=== PATIENT | female | born 1980 | race Caucasian/White ===

== ENCOUNTER 2018-01-29 09:38 | Day surgery (SDC) | payer BC, OTHER ==
[~2018-01-29] VITALS: Ht 154.9 cm; Wt 89.0 kg
[~2018-01-29 09:38] MED LIST: ACNE MED; ACYC400; AMOX875 PO; ESCI10; EXCEDRIN TENSION H/A; HYDACE10B PO; HYDACE5 PO; HYDPAM25 PO; IBUP800; Imitrex50 MG; LEVFLO500; METR500; NAPR250; ONDA8; PRED20 PO; PROG100 PO; RXOXYACE PO; SERT50; SUMA6I; TRAM50
[2018-01-29] MEDS ORDERED: NAPR500 (10:14)
== END 2018-01-29 12:35 | disposition home or self-care (01) ==
LOC: ORSCSDS 09:38
PROVIDERS: Obstetrics & Gynecology
PROC: 0UBC7ZX Excision of Cervix, Via Natural or Artificial Opening, Diagnostic (ICD-10-PCS; principal; 2018-01-29 11:30)
DX: D06.0 Carcinoma in situ of endocervix (principal); E66.01 Morbid (severe) obesity due to excess calories; Z68.37 Body mass index [BMI] 37.0-37.9, adult; F17.210 Nicotine dependence, cigarettes, uncomplicated
CPT/HCPCS: 88307; J0171; J0690; J1100; J1885; J2250; J2405

== ENCOUNTER → 2018-05-10 | Outpatient (CLI) | payer BC ==
[~2018-05-10] MED LIST changes: +NAPR500
[2018-05-10 10:29] LABS: BASOPHILS ABSOLUTE AUTO 0.04 K/mm3 (0.00-0.23); BASOPHILS PERCENT AUTO 1 % (0-2); EOSINOPHILS ABSOLUTE AUTO 0.05 K/mm3 (0.00-0.68); EOSINOPHILS PERCENT AUTO 1 % (0-6); Hematocrit 40.4 % (33.0-51.0); Hemoglobin 13.5 g/dL (11.5-16.0); IMMATURE GRAN ABSOLUTE AUTO 0.02 K/mm3 (0.00-0.10); IMMATURE GRAN PERCENT AUTO 0 % (0-1); LYMPHOCYTES ABSOLUTE AUTO 1.25 K/mm3 (0.84-5.20); LYMPHOCYTES PERCENT AUTO 22 % (21-46); MONOCYTES PERCENT AUTO 5 % (4-13); Mean Corpuscular HGB 28.8 pg (26.0-34.0); Mean Corpuscular HGB Conc 33.4 g/dL (31.5-36.5); Mean Corpuscular Volume 86 fL (80-100); Mean Platelet Volume 10.2 fL (9.1-12.4); NEUTROPHILS ABSOLUTE AUTO 4.08 K/mm3 (1.96-9.15); NEUTROPHILS PERCENT AUTO 71 % (41-73); Platelet Count 295 K/mm3 (150-400); RDW Coefficient Variation 13.9 % (11.7-14.2); RDW Standard Deviation 43.2 fL (35.1-46.3); Red Blood Cell Count 4.68 M/mm3 (3.80-5.20); White Blood Cell Count 5.74 K/mm3 (4.00-11.30)
[2018-05-10 10:47] LABS: Alanine Aminotransfer (ALT/SGP 42 U/L (12-78); Albumin, Blood 3.8 g/dL (3.4-5.0); Alk Phos 59 U/L (40-126); Anion Gap 14 mmol/L (6-16); Aspartate Aminotrans (AST/SGOT 30 U/L (12-37); Bilirubin, Total 0.2 mg/dL (0.1-1.0); Blood Urea Nitrogen 11 mg/dL (8-24); Bun/Creatinine Ratio 13.1 (12.0-20.0); CO2, Blood 21 mmol/L (21-32); Calcium, Blood 9.3 mg/dL (8.5-10.1); Chloride, Blood 104 mmol/L (98-108); Creatinine, Blood 0.84 mg/dL (0.40-1.00); Globulin, Blood 3.9 g/dL (2.2-4.0); Glomerular Filtration Rate >60 (60-); Glucose, Blood 98 mg/dL (70-99); Sodium, Blood 139 mmol/L (136-145); Total Protein, Blood 7.7 g/dL (6.4-8.2)
[2018-05-10 10:56] LABS: Troponin I <0.017 ng/mL (0.000-0.040)
== END | disposition home or self-care (01) ==
LOC: LAB SHORT 10:23 → LAB EV 10:23
PROVIDERS: General Practice
DX: R07.9 Chest pain, unspecified (principal)
CPT/HCPCS: 80053; 84484; 85025; 85379; 85651

== ENCOUNTER 2019-02-02 12:05 | Emergency (ER) | payer BC, OTHER ==
[~2019-02-02] VITALS: Ht 154.9 cm; Wt 92.1 kg
[2019-02-02 12:57] LABS: BASOPHILS ABSOLUTE AUTO 0.03 K/mm3 (0.00-0.23); BASOPHILS PERCENT AUTO 1 % (0-2); EOSINOPHILS ABSOLUTE AUTO 0.07 K/mm3 (0.00-0.68); EOSINOPHILS PERCENT AUTO 1 % (0-6); Hematocrit 39.9 % (33.0-51.0); Hemoglobin 13.1 g/dL (11.5-16.0); IMMATURE GRAN ABSOLUTE AUTO 0.04 K/mm3 (0.00-0.10); IMMATURE GRAN PERCENT AUTO 1 % (0-1); LYMPHOCYTES ABSOLUTE AUTO 1.64 K/mm3 (0.84-5.20); LYMPHOCYTES PERCENT AUTO 25 % (21-46); MONOCYTES ABSOLUTE AUTO 0.31 K/mm3 (0.16-1.47); MONOCYTES PERCENT AUTO 5 % (4-13); Mean Corpuscular HGB Conc 32.8 g/dL (31.5-36.5); Mean Corpuscular Volume 89 fL (80-100); Mean Platelet Volume 10.4 fL (9.1-12.4); NEUTROPHILS ABSOLUTE AUTO 4.53 K/mm3 (1.96-9.15); NEUTROPHILS PERCENT AUTO 68 % (41-73); Platelet Count 276 K/mm3 (150-400); RDW Standard Deviation 45.1 fL (35.1-46.3); Red Blood Cell Count 4.51 M/mm3 (3.80-5.20); White Blood Cell Count 6.62 K/mm3 (4.00-11.30)
[2019-02-02 13:16] LABS: Alanine Aminotransfer (ALT/SGP 31 U/L (12-78); Albumin/Globulin Ratio 1.1 (0.8-1.8); Alk Phos 64 U/L (50-136); Anion Gap 11 mmol/L (6-16); Aspartate Aminotrans (AST/SGOT 19 U/L (12-37); Bilirubin, Total 0.4 mg/dL (0.1-1.0); Blood Urea Nitrogen 13 mg/dL (8-24); Bun/Creatinine Ratio 16.6 (12.0-20.0); CO2, Blood 22 mmol/L (21-32); Calcium, Blood 8.8 mg/dL (8.5-10.1); Chloride, Blood 107 mmol/L (98-108); Creatinine, Blood 0.79 mg/dL (0.40-1.00); Globulin, Blood 3.8 g/dL (2.2-4.0); Glomerular Filtration Rate >60 (60-); Glucose, Blood 109 mg/dL (70-99); Potassium, Blood 3.5 mmol/L (3.5-5.5); Sodium, Blood 140 mmol/L (136-145); Total Protein, Blood 7.8 g/dL (6.4-8.2)
[2019-02-02 13:17] LABS: Troponin I <0.015 ng/mL (0.000-0.040)
== END 2019-02-02 15:15 | disposition home or self-care (01) ==
LOC: ER 12:05
PROVIDERS: Physician Assistant
DX: R00.2 Palpitations (principal); Z87.891 Personal history of nicotine dependence; Z88.5 Allergy status to narcotic agent
CPT/HCPCS: 36415; 71046; 80053; 84443; 84484; 85025; 93005; 93010; 99285-25

== ENCOUNTER → 2019-03-18 | Outpatient (CLI) | payer BC, OTHER ==
[2019-03-18 15:48] LABS: BASOPHILS ABSOLUTE AUTO 0.03 K/mm3 (0.00-0.23); BASOPHILS PERCENT AUTO 1 % (0-2); EOSINOPHILS ABSOLUTE AUTO 0.04 K/mm3 (0.00-0.68); EOSINOPHILS PERCENT AUTO 1 % (0-6); Hematocrit 40.3 % (33.0-51.0); Hemoglobin 13.4 g/dL (11.5-16.0); IMMATURE GRAN ABSOLUTE AUTO 0.02 K/mm3 (0.00-0.10); IMMATURE GRAN PERCENT AUTO 0 % (0-1); LYMPHOCYTES ABSOLUTE AUTO 1.42 K/mm3 (0.84-5.20); LYMPHOCYTES PERCENT AUTO 22 % (21-46); MONOCYTES ABSOLUTE AUTO 0.38 K/mm3 (0.16-1.47); MONOCYTES PERCENT AUTO 6 % (4-13); Mean Corpuscular HGB 28.5 pg (26.0-34.0); Mean Corpuscular HGB Conc 33.3 g/dL (31.5-36.5); Mean Corpuscular Volume 86 fL (80-100); Mean Platelet Volume 10.6 fL (9.1-12.4); NEUTROPHILS ABSOLUTE AUTO 4.69 K/mm3 (1.96-9.15); NEUTROPHILS PERCENT AUTO 71 % (41-73); Platelet Count 276 K/mm3 (150-400); RDW Coefficient Variation 13.6 % (11.7-14.2); RDW Standard Deviation 42.7 fL (35.1-46.3); White Blood Cell Count 6.58 K/mm3 (4.00-11.30)
[2019-03-18 16:05] LABS: Alanine Aminotransfer (ALT/SGP 47 U/L (12-78); Albumin, Blood 3.5 g/dL (3.4-5.0); Alk Phos 51 U/L (40-126); Anion Gap 12 mmol/L (6-16); Aspartate Aminotrans (AST/SGOT 38 U/L (12-37); Bilirubin, Total 0.2 mg/dL (0.1-1.0); Blood Urea Nitrogen 16 mg/dL (8-24); CO2, Blood 22 mmol/L (21-32); Chloride, Blood 106 mmol/L (98-108); Creatinine, Blood 0.94 mg/dL (0.40-1.00); Free Thyroxine 1.01 ng/dL (0.70-1.60); Globulin, Blood 3.6 g/dL (2.2-4.0); Glomerular Filtration Rate >60 (60-); Glucose, Blood 96 mg/dL (70-99); Potassium, Blood 3.6 mmol/L (3.5-5.5); Sodium, Blood 140 mmol/L (136-145); Thyroid Stimulating Hormone 2.437 uIU/mL (0.360-4.800); Total Protein, Blood 7.1 g/dL (6.4-8.2)
== END ==
LOC: LAB SHORT 15:42 → LAB EV 15:42
PROVIDERS: Emergency Medicine
DX: R00.2 Palpitations (principal); R50.9 Fever, unspecified
CPT/HCPCS: 80053; 84439; 84443; 84481; 85025; 87040

== ENCOUNTER 2023-09-17 07:06 | Emergency (ER) | payer BC, OTHER ==
[~2023-09-17] VITALS: Ht 154.9 cm; Wt 81.7 kg
[2023-09-17] MEDS ORDERED: BUPROPION HCL200 M1 PO (07:29)
[2023-09-17] MEDS ORDERED: LISI20 (07:29)
[2023-09-17] MEDS ORDERED: Adderall 5mg tab5 MG PO (07:29)
[2023-09-17] MEDS ORDERED: Adderall Xr 2020 MG PO (07:30)
[2023-09-17 07:53] LABS: BASOPHILS ABSOLUTE AUTO 0.04 K/mm3 (0.00-0.23); BASOPHILS PERCENT AUTO 1 % (0-2); EOSINOPHILS ABSOLUTE AUTO 0.05 K/mm3 (0.00-0.68); EOSINOPHILS PERCENT AUTO 1 % (0-6); Hemoglobin 12.7 g/dL (11.5-16.0); IMMATURE GRAN ABSOLUTE AUTO 0.02 K/mm3 (0.00-0.10); IMMATURE GRAN PERCENT AUTO 0 % (0-1); LYMPHOCYTES ABSOLUTE AUTO 2.31 K/mm3 (0.84-5.20); LYMPHOCYTES PERCENT AUTO 44 % (21-46); MONOCYTES ABSOLUTE AUTO 0.33 K/mm3 (0.16-1.47); MONOCYTES PERCENT AUTO 6 % (4-13); Mean Corpuscular HGB 29.5 pg (26.0-34.0); Mean Corpuscular HGB Conc 33.4 g/dL (31.5-36.5); Mean Corpuscular Volume 88 fL (80-100); Mean Platelet Volume 9.9 fL (9.1-12.4); NEUTROPHILS ABSOLUTE AUTO 2.45 K/mm3 (1.96-9.15); NEUTROPHILS PERCENT AUTO 47 % (41-73); Platelet Count 293 K/mm3 (150-400); RDW Standard Deviation 44.9 fL (35.1-46.3); Red Blood Cell Count 4.31 M/mm3 (3.80-5.20)
[2023-09-17 08:18] LABS: Albumin, Blood 3.4 g/dL (3.4-5.0); Bilirubin, Total 0.2 mg/dL (0.1-1.0); Bun/Creatinine Ratio 20.7 (12.0-20.0); Calcium, Blood 8.9 mg/dL (8.5-10.1); Creatinine, Blood 0.68 mg/dL (0.40-1.00); Globulin, Blood 3.4 g/dL (2.2-4.0); Potassium, Blood 3.9 mmol/L (3.5-5.5); Total Protein, Blood 6.8 g/dL (6.4-8.2)
[2023-09-17 11:45] VITALS: BP 104/74
== END 2023-09-17 11:45 | disposition home or self-care (01) ==
LOC: ER 07:06
PROVIDERS: Student in an Organized Health Care Education/Training Program
DX: R07.9 Chest pain, unspecified (principal); Z87.891 Personal history of nicotine dependence; I10 Essential (primary) hypertension; E78.1 Pure hyperglyceridemia; G43.909 Migraine, unspecified, not intractable, without status migrainosus; G47.00 Insomnia, unspecified; Z79.899 Other long term (current) drug therapy; Z88.5 Allergy status to narcotic agent
CPT/HCPCS: 71045; 80053; 83735; 84484; 85025; 85379; 93005; 93010; 96361; 96374; 96375; 99285-25; J1885; J2405; J7030

== ENCOUNTER → 2023-12-12 | Outpatient (CLI) | payer BC, OTHER ==
[~2023-12-12] MED LIST changes: +ALPRAZOLAM110 PO; +ATOR80 PO; +Adderall 5mg tab5 MG PO; +Adderall Xr 2020 MG PO; +Amlodipine Bes2.5 MG PO; +Aspir 8181 MG PO; +BUPR150ER PO; +CLOP75 PO; +HYDHCL25 PO; +LISI20 PO; +METO25ER PO; +NITR.4SL SL; +Naltrexone HCl50 MG PO; +Ondansetron Odt8 MG SL
== END | disposition home or self-care (01) ==
LOC: LAB SHORT 15:18
DX: R00.2 Palpitations (principal)
CPT/HCPCS: 85379

== ENCOUNTER 2023-12-17 00:59 | Emergency (ER) | payer BC, OTHER ==
[~2023-12-17] VITALS: Ht 154.9 cm; Wt 81.7 kg
[2023-12-17 01:44] LABS: BASOPHILS ABSOLUTE AUTO 0.04 K/mm3 (0.00-0.23); BASOPHILS PERCENT AUTO 1 % (0-2); EOSINOPHILS ABSOLUTE AUTO 0.12 K/mm3 (0.00-0.68); EOSINOPHILS PERCENT AUTO 2 % (0-6); Hematocrit 38.7 % (33.0-51.0); Hemoglobin 12.9 g/dL (11.5-16.0); IMMATURE GRAN ABSOLUTE AUTO 0.01 K/mm3 (0.00-0.10); IMMATURE GRAN PERCENT AUTO 0 % (0-1); LYMPHOCYTES ABSOLUTE AUTO 2.07 K/mm3 (0.84-5.20); LYMPHOCYTES PERCENT AUTO 33 % (21-46); MONOCYTES ABSOLUTE AUTO 0.42 K/mm3 (0.16-1.47); MONOCYTES PERCENT AUTO 7 % (4-13); Mean Corpuscular HGB 28.9 pg (26.0-34.0); Mean Corpuscular HGB Conc 33.3 g/dL (31.5-36.5); Mean Corpuscular Volume 87 fL (80-100); Mean Platelet Volume 10.7 fL (9.1-12.4); NEUTROPHILS ABSOLUTE AUTO 3.65 K/mm3 (1.96-9.15); NEUTROPHILS PERCENT AUTO 58 % (41-73); Platelet Count 248 K/mm3 (150-400); RDW Coefficient Variation 12.9 % (11.7-14.2); RDW Standard Deviation 40.8 fL (35.1-46.3); Red Blood Cell Count 4.46 M/mm3 (3.80-5.20); White Blood Cell Count 6.31 K/mm3 (4.00-11.30)
[2023-12-17 01:56] LABS: Albumin, Blood 3.7 g/dL (3.4-5.0); Albumin/Globulin Ratio 1.2 (0.8-1.8); Bilirubin, Total 0.2 mg/dL (0.1-1.0); Bun/Creatinine Ratio 24.3 (12.0-20.0); Calcium, Blood 9.3 mg/dL (8.5-10.1); Creatinine, Blood 0.78 mg/dL (0.40-1.00); Globulin, Blood 3.1 g/dL (2.2-4.0); Potassium, Blood 3.8 mmol/L (3.5-5.5); Total Protein, Blood 6.8 g/dL (6.4-8.2)
[2023-12-17 04:00] VITALS: BP 102/66
== END 2023-12-17 04:10 | disposition home or self-care (01) ==
LOC: ER 00:59
PROVIDERS: Emergency Medicine
DX: R00.2 Palpitations (principal); Z59.89 Other problems related to housing and economic circumstances; Z75.3 Unavailability and inaccessibility of health-care facilities; Z87.891 Personal history of nicotine dependence; I10 Essential (primary) hypertension; G43.909 Migraine, unspecified, not intractable, without status migrainosus; E78.1 Pure hyperglyceridemia; G47.00 Insomnia, unspecified; Z79.02 Long term (current) use of antithrombotics/antiplatelets; Z79.82 Long term (current) use of aspirin; Z79.899 Other long term (current) drug therapy; Z88.8 Allergy status to other drugs, medicaments and biological substances
CPT/HCPCS: 71046; 80053; 83690; 83880; 84484; 85025; 93005; 93010; 99285-25

== ENCOUNTER 2023-12-24 20:57 | Emergency (ER) | payer BC, OTHER ==
[~2023-12-24] VITALS: Ht 154.9 cm; Wt 81.7 kg
[2023-12-24 21:39] LABS: BASOPHILS ABSOLUTE AUTO 0.05 K/mm3 (0.00-0.23); BASOPHILS PERCENT AUTO 1 % (0-2); EOSINOPHILS ABSOLUTE AUTO 0.09 K/mm3 (0.00-0.68); EOSINOPHILS PERCENT AUTO 1 % (0-6); Hematocrit 38.9 % (33.0-51.0); IMMATURE GRAN ABSOLUTE AUTO 0.01 K/mm3 (0.00-0.10); IMMATURE GRAN PERCENT AUTO 0 % (0-1); LYMPHOCYTES ABSOLUTE AUTO 1.63 K/mm3 (0.84-5.20); LYMPHOCYTES PERCENT AUTO 22 % (21-46); MONOCYTES ABSOLUTE AUTO 0.46 K/mm3 (0.16-1.47); MONOCYTES PERCENT AUTO 6 % (4-13); Mean Corpuscular HGB Conc 33.4 g/dL (31.5-36.5); Mean Corpuscular Volume 87 fL (80-100); Mean Platelet Volume 10.2 fL (9.1-12.4); NEUTROPHILS ABSOLUTE AUTO 5.13 K/mm3 (1.96-9.15); NEUTROPHILS PERCENT AUTO 70 % (41-73); Platelet Count 291 K/mm3 (150-400); RDW Coefficient Variation 13.1 % (11.7-14.2); RDW Standard Deviation 41.1 fL (35.1-46.3); Red Blood Cell Count 4.48 M/mm3 (3.80-5.20); White Blood Cell Count 7.37 K/mm3 (4.00-11.30)
[2023-12-24 21:57] LABS: Albumin, Blood 3.5 g/dL (3.4-5.0); Albumin/Globulin Ratio 1.1 (0.8-1.8); Bilirubin, Total 0.3 mg/dL (0.1-1.0); Bun/Creatinine Ratio 24.7 (12.0-20.0); Creatinine, Blood 0.69 mg/dL (0.40-1.00); Globulin, Blood 3.3 g/dL (2.2-4.0); Total Protein, Blood 6.8 g/dL (6.4-8.2)
[2023-12-25 01:00] VITALS: BP 108/83
== END 2023-12-25 01:27 | disposition home or self-care (01) ==
LOC: ER 20:57
PROVIDERS: Physician Assistant
DX: M79.602 Pain in left arm (principal); Z88.5 Allergy status to narcotic agent; Z79.899 Other long term (current) drug therapy; Z79.82 Long term (current) use of aspirin; I10 Essential (primary) hypertension; I25.2 Old myocardial infarction
CPT/HCPCS: 71046; 80053; 84484; 85025; 93005; 93010; 99284-25

== ENCOUNTER 2023-12-30 00:33 | Emergency (ER) | payer BC, OTHER ==
[~2023-12-30] VITALS: Ht 154.9 cm; Wt 81.7 kg
[2023-12-30 01:07] LABS: BASOPHILS ABSOLUTE AUTO 0.04 K/mm3 (0.00-0.23); BASOPHILS PERCENT AUTO 1 % (0-2); EOSINOPHILS ABSOLUTE AUTO 0.11 K/mm3 (0.00-0.68); EOSINOPHILS PERCENT AUTO 2 % (0-6); Hematocrit 38.2 % (33.0-51.0); Hemoglobin 12.6 g/dL (11.5-16.0); IMMATURE GRAN ABSOLUTE AUTO 0.02 K/mm3 (0.00-0.10); IMMATURE GRAN PERCENT AUTO 0 % (0-1); LYMPHOCYTES ABSOLUTE AUTO 1.84 K/mm3 (0.84-5.20); LYMPHOCYTES PERCENT AUTO 27 % (21-46); MONOCYTES ABSOLUTE AUTO 0.45 K/mm3 (0.16-1.47); MONOCYTES PERCENT AUTO 7 % (4-13); Mean Corpuscular HGB 28.8 pg (26.0-34.0); Mean Corpuscular Volume 87 fL (80-100); Mean Platelet Volume 9.8 fL (9.1-12.4); NEUTROPHILS ABSOLUTE AUTO 4.49 K/mm3 (1.96-9.15); NEUTROPHILS PERCENT AUTO 65 % (41-73); Platelet Count 283 K/mm3 (150-400); RDW Coefficient Variation 13.2 % (11.7-14.2); RDW Standard Deviation 41.8 fL (35.1-46.3); Red Blood Cell Count 4.38 M/mm3 (3.80-5.20); White Blood Cell Count 6.95 K/mm3 (4.00-11.30)
[2023-12-30 01:27] LABS: Albumin, Blood 3.6 g/dL (3.4-5.0); Albumin/Globulin Ratio 1.1 (0.8-1.8); Bilirubin, Total 0.2 mg/dL (0.1-1.0); Bun/Creatinine Ratio 23.1 (12.0-20.0); Calcium, Blood 9.4 mg/dL (8.5-10.1); Creatinine, Blood 0.69 mg/dL (0.40-1.00); Globulin, Blood 3.4 g/dL (2.2-4.0); Potassium, Blood 3.7 mmol/L (3.5-5.5)
[2023-12-30] MEDS ORDERED: Acetaminophen 325 MG TABLET PO ONE (03:25)
[2023-12-30] MEDS ORDERED: Aspirin 325 MG Tab PO ONE (03:25)
[2023-12-30 03:30] VITALS: BP 96/68
== END 2023-12-30 04:06 | disposition home or self-care (01) ==
LOC: ER 00:33
PROVIDERS: Student in an Organized Health Care Education/Training Program
DX: R07.9 Chest pain, unspecified (principal); I10 Essential (primary) hypertension; G47.00 Insomnia, unspecified; I25.2 Old myocardial infarction; Z79.82 Long term (current) use of aspirin; Z79.02 Long term (current) use of antithrombotics/antiplatelets; Z79.899 Other long term (current) drug therapy; Z88.5 Allergy status to narcotic agent; Z87.891 Personal history of nicotine dependence
CPT/HCPCS: 71046; 80053; 83690; 84484; 85025; 93005; 93010; 99285-25; A9270

== ENCOUNTER 2024-01-07 05:07 | Emergency (ER) | payer BC, OTHER ==
[~2024-01-07] VITALS: Ht 154.9 cm; Wt 80.7 kg
[2024-01-07 05:45] LABS: BASOPHILS ABSOLUTE AUTO 0.07 K/mm3 (0.00-0.23); BASOPHILS PERCENT AUTO 1 % (0-2); EOSINOPHILS ABSOLUTE AUTO 0.06 K/mm3 (0.00-0.68); EOSINOPHILS PERCENT AUTO 1 % (0-6); Hematocrit 38.2 % (33.0-51.0); Hemoglobin 12.6 g/dL (11.5-16.0); IMMATURE GRAN ABSOLUTE AUTO 0.03 K/mm3 (0.00-0.10); IMMATURE GRAN PERCENT AUTO 0 % (0-1); LYMPHOCYTES ABSOLUTE AUTO 1.66 K/mm3 (0.84-5.20); LYMPHOCYTES PERCENT AUTO 20 % (21-46); MONOCYTES ABSOLUTE AUTO 0.52 K/mm3 (0.16-1.47); MONOCYTES PERCENT AUTO 6 % (4-13); Mean Corpuscular HGB 28.8 pg (26.0-34.0); Mean Corpuscular Volume 87 fL (80-100); Mean Platelet Volume 9.8 fL (9.1-12.4); NEUTROPHILS PERCENT AUTO 72 % (41-73); Platelet Count 305 K/mm3 (150-400); RDW Coefficient Variation 13.4 % (11.7-14.2); Red Blood Cell Count 4.38 M/mm3 (3.80-5.20); White Blood Cell Count 8.24 K/mm3 (4.00-11.30)
[2024-01-07] MEDS ORDERED: NS 1,000 ML IV SCH (06:00)
[2024-01-07 06:12] LABS: Albumin, Blood 3.6 g/dL (3.4-5.0); Albumin/Globulin Ratio 1.1 (0.8-1.8); Bilirubin, Total 0.4 mg/dL (0.1-1.0); Bun/Creatinine Ratio 34.6 (12.0-20.0); Calcium, Blood 9.2 mg/dL (8.5-10.1); Creatinine, Blood 0.67 mg/dL (0.40-1.00); Globulin, Blood 3.3 g/dL (2.2-4.0); Magnesium, Blood 1.9 mg/dL (1.6-2.4); Potassium, Blood 3.9 mmol/L (3.5-5.5); Total Protein, Blood 6.9 g/dL (6.4-8.2)
[2024-01-07 08:00] VITALS: BP 113/78
== END 2024-01-07 08:10 | disposition home or self-care (01) ==
LOC: ER 05:07
PROVIDERS: Student in an Organized Health Care Education/Training Program
DX: R07.9 Chest pain, unspecified (principal); I10 Essential (primary) hypertension; Z88.5 Allergy status to narcotic agent; Z79.82 Long term (current) use of aspirin; Z79.899 Other long term (current) drug therapy; Z95.5 Presence of coronary angioplasty implant and graft; Z87.891 Personal history of nicotine dependence
CPT/HCPCS: 71046; 80053; 83735; 83880; 84484; 85025; J7030

== ENCOUNTER 2024-02-28 00:03 | Observation (INO) | payer BC, OTHER ==
[~2024-02-28] VITALS: Ht 154.9 cm; Wt 80.4 kg
[~2024-02-28 00:03] MED LIST changes: +ATOR40TA PO; -ATOR80 PO
[2024-02-28 01:21] LABS: BASOPHILS ABSOLUTE AUTO 0.04 K/mm3 (0.00-0.23); BASOPHILS PERCENT AUTO 1 % (0-2); EOSINOPHILS ABSOLUTE AUTO 0.06 K/mm3 (0.00-0.68); EOSINOPHILS PERCENT AUTO 1 % (0-6); Hematocrit 39.6 % (33.0-51.0); IMMATURE GRAN ABSOLUTE AUTO 0.02 K/mm3 (0.00-0.10); IMMATURE GRAN PERCENT AUTO 0 % (0-1); LYMPHOCYTES ABSOLUTE AUTO 1.52 K/mm3 (0.84-5.20); LYMPHOCYTES PERCENT AUTO 28 % (21-46); MONOCYTES ABSOLUTE AUTO 0.37 K/mm3 (0.16-1.47); MONOCYTES PERCENT AUTO 7 % (4-13); Mean Corpuscular HGB 28.4 pg (26.0-34.0); Mean Corpuscular HGB Conc 32.8 g/dL (31.5-36.5); Mean Corpuscular Volume 87 fL (80-100); Mean Platelet Volume 9.9 fL (9.1-12.4); NEUTROPHILS ABSOLUTE AUTO 3.49 K/mm3 (1.96-9.15); NEUTROPHILS PERCENT AUTO 64 % (41-73); Platelet Count 282 K/mm3 (150-400); RDW Coefficient Variation 14.6 % (11.7-14.2); Red Blood Cell Count 4.58 M/mm3 (3.80-5.20)
[2024-02-28] MEDS ORDERED: Aspirin 81 MG Chew PO ONE (01:30)
[2024-02-28] MEDS ORDERED: Nitroglycerin 0.4 MG SUBL SL PRN ×2 (01:30→02:35)
[2024-02-28 01:34] LABS: Albumin, Blood 3.5 g/dL (3.4-5.0); Bilirubin, Total 0.2 mg/dL (0.1-1.0); Bun/Creatinine Ratio 25.5 (12.0-20.0); Calcium, Blood 8.3 mg/dL (8.5-10.1); Creatinine, Blood 0.55 mg/dL (0.40-1.00); Globulin, Blood 3.5 g/dL (2.2-4.0); Potassium, Blood 3.7 mmol/L (3.5-5.5)
[2024-02-28] MEDS ORDERED: Acetaminophen 325 MG TABLET PO PRN (02:35)
[2024-02-28] MEDS ORDERED: Ondansetron HCl 2 MG / ML 2ML Vial IV PRN (02:35)
[2024-02-28] MEDS ORDERED: Naloxone HCl 0.4MG / ML 1ML Vial IV PRN (02:35)
[2024-02-28] MEDS ORDERED: Lactated Ringer's 1,000 ML IV SCH (03:00)
[2024-02-28] MEDS ORDERED: Morphine Sulfate 4 MG/1 ML Injection IV PRN (03:00)
[2024-02-28] MEDS ORDERED: Morphine Sulfate 4 MG/1 ML Injection IV ONE (03:00)
[2024-02-28 05:14] VITALS: BP 133/105
[2024-02-28 05:41] LABS: BASOPHILS ABSOLUTE AUTO 0.05 K/mm3 (0.00-0.23); BASOPHILS PERCENT AUTO 1 % (0-2); EOSINOPHILS ABSOLUTE AUTO 0.06 K/mm3 (0.00-0.68); EOSINOPHILS PERCENT AUTO 1 % (0-6); Hematocrit 39.5 % (33.0-51.0); IMMATURE GRAN ABSOLUTE AUTO 0.02 K/mm3 (0.00-0.10); IMMATURE GRAN PERCENT AUTO 0 % (0-1); LYMPHOCYTES PERCENT AUTO 24 % (21-46); MONOCYTES ABSOLUTE AUTO 0.39 K/mm3 (0.16-1.47); MONOCYTES PERCENT AUTO 6 % (4-13); Mean Corpuscular HGB 28.4 pg (26.0-34.0); Mean Corpuscular HGB Conc 32.9 g/dL (31.5-36.5); Mean Corpuscular Volume 86 fL (80-100); Mean Platelet Volume 9.8 fL (9.1-12.4); NEUTROPHILS ABSOLUTE AUTO 4.61 K/mm3 (1.96-9.15); NEUTROPHILS PERCENT AUTO 69 % (41-73); Platelet Count 283 K/mm3 (150-400); RDW Coefficient Variation 14.6 % (11.7-14.2); RDW Standard Deviation 45.5 fL (35.1-46.3); Red Blood Cell Count 4.58 M/mm3 (3.80-5.20); White Blood Cell Count 6.73 K/mm3 (4.00-11.30)
[2024-02-28 06:01] LABS: Albumin, Blood 3.7 g/dL (3.4-5.0); Albumin/Globulin Ratio 1.1 (0.8-1.8); Bilirubin, Total 0.3 mg/dL (0.1-1.0); Bun/Creatinine Ratio 20.8 (12.0-20.0); Calcium, Blood 8.7 mg/dL (8.5-10.1); Creatinine, Blood 0.62 mg/dL (0.40-1.00); Globulin, Blood 3.5 g/dL (2.2-4.0); Potassium, Blood 3.7 mmol/L (3.5-5.5); Total Protein, Blood 7.2 g/dL (6.4-8.2)
[2024-02-28] MEDS ORDERED: FLUO10 PO (06:16)
[2024-02-28 07:10] VITALS: BP 124/93
--- NOTE | 2024-02-28 08:27 | NUR ---
SHIFT SUMMARY NOC. PT ARRIVED TO THE UNIT FROM THE ER TO ROOM 340 AT 0512. PT A/O X4. INDEPENDENT IN ROOM, ORIENTED TO ROOM AND UNIT POLICIES. PT ON TELEMETRY NSR, NO EVENTS. PT HAVING LEFT ARM PAIN. PT NPO SINCE ARRIVAL TO UNIT. PT RESTED WITH EYES CLOSED AND CALL LIGHT IN REACH.
[2024-02-28] MEDS ORDERED: Docusate Sodium 100 MG Cap PO SCH (09:00)
[2024-02-28] MEDS ORDERED: AmLODIPine Besylate 5 MG Tab PO SCH (09:00)
[2024-02-28] MEDS ORDERED: Metoprolol Succinate 25 MG TABCR PO SCH (09:00)
[2024-02-28] MEDS ORDERED: Clopidogrel Bisulfate 75 MG Tab PO SCH (09:00)
[2024-02-28] MEDS ORDERED: Aspirin 81 MG Chew PO SCH (09:00)
[2024-02-28] MEDS ORDERED: Atorvastatin 40 MG Tab PO SCH ×2 (09:00→21:00)
[2024-02-28] MEDS ORDERED: buPROPion HCL 150 MG TAB.SR.12H PO SCH (09:49)
[2024-02-28] MEDS ORDERED: FLUoxetine HCl 10 MG Cap PO SCH (09:49)
[2024-02-28] MEDS ORDERED: Isosorbide Mononitrate 60 MG TABCR PO SCH (11:00)
[2024-02-28 14:58] VITALS: BP 117/84
[2024-02-28] MEDS ORDERED: DiphenhydrAMINE HCL 25 MG Cap PO ONE (17:05)
--- NOTE | 2024-02-28 17:05 | NUR ---
SHIFT SUMMARY: PATIENT A/OX4, CALM, PLEASANT AND COOPERATIVE c CARE. PATIENT CONTINUES TO REPORTS PAIN 8/10 TO SHOULDER DOWN TO FINGER TIPS, MEDICATED c PRN IV MORPHINE, REPORTS PAIN DOWN TO 5-6/10. PATIENT ALSO REPORTS HEADACHE STARTED AT 1455, MEDICATED c PO TYLENOL c NO EFFECT. NOTIFIED DR. OLIVEROS RECEIVED ORDER TO GIVE OT DOSE PO BENADRYL [address] OLIVEROS IF PATIENT CONTINUES TO HAVE PAIN TO L ARM, KEEP HER NPO AT SC FOR POSSIBLE ANGIOGRAM TOMORROW 02/29/24. PATIENT STARTED ON IMDUR THIS AM PER ORDER. PATIENT DENIES CP/PRESSURE, N/V, SOB AND DIZZINESS. PATIENT ON TELE SR/ST HR RANGES HIGH 60'S TO HIGH 12O'S BPM. PATIENT ON HEART HEALTHY DIET, FAIR APPETITE, CONTINENT OF BLADDER, AMBULATES TO BATHROOM INDEPENDENTLY T/O SHIFT. VITAL SIGNS REVIEWED. CALL LIGHT IN REACH.
[2024-02-28 19:36] VITALS: BP 101/66
[2024-02-28] MEDS ORDERED: TraMADol HCl 50 MG Tab PO ONE (20:50)
[2024-02-29] MEDS ORDERED: Acetaminophen/Aspirin/Caffeine 250/250/65 MG PO ONE (01:00)
[2024-02-29 03:10] VITALS: BP 101/74
--- NOTE | 2024-02-29 06:24 | NUR ---
SHIFT SUMMARY PATIENT ALERT AND ORIENTED X4. MEDICATED ONCE PER EMAR FOR LEFT ARM PAIN. PATIENT REPORTED 9/10 HEADACHE THAT PERSISTED ALL NIGHT DESPITE BEING MEDICATED WITH TYLENOL, SHE WAS THEN MEDICATED WITH 50 MG ULTRAM PER BLAINE DOWNEY, WHICH INITIALLY HELPED BUT THE PAIN QUICKLY REBOUNDED, INFORMED DR JULIAN OF THIS WELL AND HE ORDERED EXCEDRIN TO TRY. PATIENT ON ROOM AIR. VITAL SIGNS STABLE, SINUS RHYTHM ON TELE. NO OTHER ISSUES NOTED OVERNIGHT. WILL CONTINUE TO MONITOR. CALL LIGHT WITHIN REACH.
[2024-02-29 07:38] VITALS: BP 117/91
[2024-02-29] MEDS ORDERED: FLUoxetine HCl 10 MG Cap PO SCH (09:00)
[2024-02-29] MEDS ORDERED: buPROPion HCL 150 MG TAB.SR.12H PO SCH (09:00)
[2024-02-29] MEDS ORDERED: SUMAtriptan Succinate 6 MG/0.5 ML Vial SC ONE (09:25)
[2024-02-29] MEDS ORDERED: Lisinopril 5 MG Tab PO SCH (12:00)
[2024-02-29] MEDS ORDERED: Isosorbide Mono30 MG PO (12:38)
[2024-02-29] MEDS ORDERED: Lisinopril2.5 MG PO (12:38)
[2024-02-29] MEDS ORDERED: SUMA25 PO (12:39)
[2024-03-01] MEDS ORDERED: Metoprolol Succinate 25 MG TABCR PO SCH (09:00)
[2024-03-01] MEDS ORDERED: Isosorbide Mononitrate 30 MG TABCR PO SCH (09:00)
== END 2024-02-29 13:46 | disposition home or self-care (01) ==
LOC: ER 00:03 → MEDS 00:04 → ERHOLD 00:04 → MEDS 05:11 → ENPENDDIS 02-29 13:42 → MEDS 02-29 13:46
PROVIDERS: Emergency Medicine; ADMIT Student in an Organized Health Care Education/Training Program
DX: I25.118 Atherosclerotic heart disease of native coronary artery with other forms of angina pectoris (principal); I25.2 Old myocardial infarction; I10 Essential (primary) hypertension; Z87.891 Personal history of nicotine dependence; Z88.5 Allergy status to narcotic agent; Z79.82 Long term (current) use of aspirin; Z79.02 Long term (current) use of antithrombotics/antiplatelets; Z79.899 Other long term (current) drug therapy
CPT/HCPCS: 36415; 71046; 80053; 83690; 83735; 84484; 85025; 93005; 93010; 96374; 96375; 96376; 99285-25; A9270; G0378; J2270; J2405; J3030; J7120

== ENCOUNTER → 2024-03-26 | Outpatient (CLI) | payer BC, OTHER ==
[~2024-03-26] MED LIST changes: +DOXYCYCLINE HY100 M1 PO; +FLUO10 PO; +HYDR1TAB94 PO; +Isosorbide Mono30 MG PO; +Lisinopril2.5 MG PO; +METR500 PO; +SUMA25 PO
[2024-03-26 09:55] LABS: BASOPHILS ABSOLUTE AUTO 0.04 K/mm3 (0.00-0.23); BASOPHILS PERCENT AUTO 0 % (0-2); EOSINOPHILS ABSOLUTE AUTO 0.03 K/mm3 (0.00-0.68); EOSINOPHILS PERCENT AUTO 0 % (0-6); Hematocrit 35.7 % (33.0-51.0); Hemoglobin 11.9 g/dL (11.5-16.0); IMMATURE GRAN ABSOLUTE AUTO 0.03 K/mm3 (0.00-0.10); IMMATURE GRAN PERCENT AUTO 0 % (0-1); LYMPHOCYTES ABSOLUTE AUTO 1.46 K/mm3 (0.84-5.20); LYMPHOCYTES PERCENT AUTO 15 % (21-46); MONOCYTES ABSOLUTE AUTO 0.51 K/mm3 (0.16-1.47); MONOCYTES PERCENT AUTO 5 % (4-13); Mean Corpuscular HGB 28.9 pg (26.0-34.0); Mean Corpuscular HGB Conc 33.3 g/dL (31.5-36.5); Mean Corpuscular Volume 87 fL (80-100); Mean Platelet Volume 9.6 fL (9.1-12.4); NEUTROPHILS ABSOLUTE AUTO 7.56 K/mm3 (1.96-9.15); NEUTROPHILS PERCENT AUTO 79 % (41-73); Platelet Count 243 K/mm3 (150-400); RDW Standard Deviation 47.2 fL (35.1-46.3); Red Blood Cell Count 4.12 M/mm3 (3.80-5.20); White Blood Cell Count 9.63 K/mm3 (4.00-11.30)
[2024-03-26 10:08] LABS: Albumin, Blood 2.8 g/dL (3.4-5.0); Albumin/Globulin Ratio 0.7 (0.8-1.8); Bilirubin, Total 0.4 mg/dL (0.1-1.0); Bun/Creatinine Ratio 21.5 (12.0-20.0); Calcium, Blood 8.7 mg/dL (8.5-10.1); Creatinine, Blood 0.65 mg/dL (0.40-1.00); Globulin, Blood 3.8 g/dL (2.2-4.0); Potassium, Blood 3.6 mmol/L (3.5-5.5); Total Protein, Blood 6.6 g/dL (6.4-8.2)
== END | disposition home or self-care (01) ==
LOC: LAB 09:51 → LAB SHORT 09:51
PROVIDERS: Physician Assistant Medical
DX: R10.31 Right lower quadrant pain (principal)
CPT/HCPCS: 80053; 85025

== ENCOUNTER 2024-07-21 14:52 | Observation (INO) | payer BC, OTHER ==
[~2024-07-21] VITALS: Ht 170.2 cm; Wt 79.0 kg
[2024-07-21 15:34] LABS: BASOPHILS ABSOLUTE AUTO 0.04 K/mm3 (0.00-0.23); BASOPHILS PERCENT AUTO 1 % (0-2); EOSINOPHILS ABSOLUTE AUTO 0.03 K/mm3 (0.00-0.68); EOSINOPHILS PERCENT AUTO 0 % (0-6); Hematocrit 40.7 % (33.0-51.0); Hemoglobin 13.5 g/dL (11.5-16.0); IMMATURE GRAN ABSOLUTE AUTO 0.01 K/mm3 (0.00-0.10); IMMATURE GRAN PERCENT AUTO 0 % (0-1); LYMPHOCYTES ABSOLUTE AUTO 1.64 K/mm3 (0.84-5.20); LYMPHOCYTES PERCENT AUTO 24 % (21-46); MONOCYTES ABSOLUTE AUTO 0.37 K/mm3 (0.16-1.47); MONOCYTES PERCENT AUTO 5 % (4-13); Mean Corpuscular HGB 29.5 pg (26.0-34.0); Mean Corpuscular HGB Conc 33.2 g/dL (31.5-36.5); Mean Corpuscular Volume 89 fL (80-100); Mean Platelet Volume 9.7 fL (9.1-12.4); NEUTROPHILS ABSOLUTE AUTO 4.89 K/mm3 (1.96-9.15); NEUTROPHILS PERCENT AUTO 70 % (41-73); Platelet Count 298 K/mm3 (150-400); RDW Coefficient Variation 13.8 % (11.7-14.2); RDW Standard Deviation 44.6 fL (35.1-46.3); Red Blood Cell Count 4.57 M/mm3 (3.80-5.20); White Blood Cell Count 6.98 K/mm3 (4.00-11.30)
[2024-07-21 15:46] LABS: Albumin, Blood 3.6 g/dL (3.4-5.0); Bilirubin, Total 0.4 mg/dL (0.1-1.0); Bun/Creatinine Ratio 21.5 (12.0-20.0); Calcium, Blood 8.8 mg/dL (8.5-10.1); Creatinine, Blood 0.7 mg/dL (0.40-1.00); Globulin, Blood 3.6 g/dL (2.2-4.0); Potassium, Blood 4.3 mmol/L (3.5-5.5); Total Protein, Blood 7.2 g/dL (6.4-8.2)
[2024-07-21] MEDS ORDERED: Morphine Sulfate 4 MG/1 ML Injection IV ONE ×2 (16:40→17:15)
[2024-07-21] MEDS ORDERED: Ondansetron HCl 2 MG / ML 2ML Vial IV ONE (16:45)
[2024-07-21] MEDS ORDERED: FLU VACC TS2024-25(6MOS UP)/PF 45 MCG/0.5 ML SYRINGE IM SCH (18:50)
[2024-07-21] MEDS ORDERED: SUMAtriptan Succinate 25 MG Tab PO PRN (18:55)
[2024-07-21] MEDS ORDERED: ALPRAZolam 1 MG Tab PO PRN (18:55)
[2024-07-21] MEDS ORDERED: Nitroglycerin 0.4 MG SUBL SL PRN (18:55)
[2024-07-21] MEDS ORDERED: Morphine Sulfate 4 MG/1 ML Injection IV PRN ×2 (18:55→23:20)
[2024-07-21] MEDS ORDERED: Ondansetron HCl 2 MG / ML 2ML Vial IV PRN (18:55)
[2024-07-21 20:54] VITALS: BP 135/104
[2024-07-21 21:14] VITALS: BP 130/95
--- NOTE | 2024-07-21 23:17 | NUR ---
PT C/O LT ARM PAIN EXTENDING DOWN HER LT ARM. NO C/O CHEST PAIN BUT SHE STATED THAT THIS IS THE SAME PAIN THAT SHE EXPERIENCED WHEN SHE HAD HER NSTEMI. CALLED DR. JULIAN AND HE PUT IN A ORDER TO INCREASE HER MORPHINE DOSE
--- NOTE | 2024-07-21 23:21 | NUR ---
ADMIT NOTE FOR 2051 REPORT WAS RECEIVED FROM ER AT 2051. PT WAS BROUGHT UP AND TRANSFERRED TO THE BED. PT ALERT ORIENTED CALLS APPROPRIATELY. C/O LT ARM PAIN THAT SHE STATED IS THE SAME PAIN THAT SHE EXPERIENCED WHEN SHE HAD HER NSTEMI IN OCTOBER. NO C/O CHEST PAIN. PT WAS ORIENTED TO THE ROOM AND STAFF AND ALL ADMIT CHARTING WAS DONE. SHE REFUSES TO TAKE ANY NITRO BECAUSE OF THE SEVERE HEADACHES THAT IT GIVES HER. SHE WILL BE NPO AFTER MIDNIGHT VSS ON RA RESTING IN BED AT THIS TIME WITH CALL LIGHT IN REACH
--- NOTE | 2024-07-21 23:28 | NUR ---
AT [address] JULIAN AND HE STATED THAT PT CAN HAVE A HEART HEALTHY DIET UNTIL MIDNIGHT TONITE.
[2024-07-22 01:51] VITALS: BP 122/93
--- NOTE | 2024-07-22 04:08 | NUR ---
SHIFT SUMMARY PT WAS ADMITTED TO US AT 2051 FROM THE ER. ALERT ORIENTED CALLS APPROPRIATELY. GETS UP IN ROOM AD EVANS. C/O LT ARM AND SHOULDER PAIN THAT SHE STATED IS JUST LIKE THE PAIN THAT SHE GOT THE LAST TIME THAT SHE HAD HER NSTEMI IN OCTOBER. SHE HAD A STENTING TO HER LAD IN OCTOBER. TROPONINS WERE ALL AT 3. SHE REFUSES TO TAKE NITRO R/T SHE STATED THAT IT CAUSES HER SEVERE HEADACHES. SHE IS TAKING MORPHINE 4MG Q2HR PRN WHICH IS HELPING WITH THE PAIN. SHE HAS A CONSULT THIS AM WITH DR. SILVERMAN THE VP [employer]. VSS ON RA SATTING AT 96%. SHE DID TAKE ONE DOSE OF XANAX DUE TO HER ANXIETY. NO C/O NAUSEA THIS SHIFT. HAS BEEN NPO SINCE MIDNIGHT. RESTING IN BED AT THIS TIME WITH CALL LIGHT IN REACH
[2024-07-22 05:42] LABS: BASOPHILS ABSOLUTE AUTO 0.03 K/mm3 (0.00-0.23); BASOPHILS PERCENT AUTO 1 % (0-2); EOSINOPHILS ABSOLUTE AUTO 0.03 K/mm3 (0.00-0.68); EOSINOPHILS PERCENT AUTO 1 % (0-6); Hematocrit 37.9 % (33.0-51.0); Hemoglobin 12.8 g/dL (11.5-16.0); IMMATURE GRAN ABSOLUTE AUTO 0.01 K/mm3 (0.00-0.10); IMMATURE GRAN PERCENT AUTO 0 % (0-1); LYMPHOCYTES ABSOLUTE AUTO 1.63 K/mm3 (0.84-5.20); LYMPHOCYTES PERCENT AUTO 27 % (21-46); MONOCYTES ABSOLUTE AUTO 0.31 K/mm3 (0.16-1.47); MONOCYTES PERCENT AUTO 5 % (4-13); Mean Corpuscular HGB 29.8 pg (26.0-34.0); Mean Corpuscular HGB Conc 33.8 g/dL (31.5-36.5); Mean Corpuscular Volume 88 fL (80-100); Mean Platelet Volume 9.7 fL (9.1-12.4); NEUTROPHILS ABSOLUTE AUTO 3.95 K/mm3 (1.96-9.15); NEUTROPHILS PERCENT AUTO 66 % (41-73); Platelet Count 255 K/mm3 (150-400); RDW Coefficient Variation 13.9 % (11.7-14.2); RDW Standard Deviation 44.6 fL (35.1-46.3); Red Blood Cell Count 4.29 M/mm3 (3.80-5.20); White Blood Cell Count 5.96 K/mm3 (4.00-11.30)
[2024-07-22 06:21] LABS: Magnesium, Blood 2.1 mg/dL (1.6-2.4)
[2024-07-22 06:22] LABS: Albumin, Blood 3.3 g/dL (3.4-5.0); Albumin/Globulin Ratio 1.1 (0.8-1.8); Bilirubin, Total 0.5 mg/dL (0.1-1.0); Bun/Creatinine Ratio 18.4 (12.0-20.0); Creatinine, Blood 0.71 mg/dL (0.40-1.00); Globulin, Blood 3.1 g/dL (2.2-4.0); Potassium, Blood 3.5 mmol/L (3.5-5.5); Total Protein, Blood 6.4 g/dL (6.4-8.2)
[2024-07-22 07:47] VITALS: BP 126/92
[2024-07-22] MEDS ORDERED: Metoprolol Succinate 25 MG TABCR PO SCH (09:00)
[2024-07-22] MEDS ORDERED: Lisinopril 5 MG Tab PO SCH (09:00)
[2024-07-22] MEDS ORDERED: Clopidogrel Bisulfate 75 MG Tab PO SCH (09:00)
[2024-07-22] MEDS ORDERED: Aspirin 81 MG Chew PO SCH (09:00)
[2024-07-22] MEDS ORDERED: Isosorbide Mononitrate 30 MG TABCR PO SCH (09:00)
[2024-07-22] MEDS ORDERED: Atorvastatin 40 MG Tab PO SCH (09:00)
[2024-07-22] MEDS ORDERED: Enoxaparin 40 MG/0.4 ML SYR SC SCH (09:00)
[2024-07-22] MEDS ORDERED: FLUoxetine HCl 10 MG Cap PO SCH (09:00)
[2024-07-22 10:38] VITALS: BP 119/84
[2024-07-22 10:40] VITALS: BP 101/77
[2024-07-22] MEDS ORDERED: Potassium Chloride 20 MEQ TabCR PO ONE (13:10)
[2024-07-22 16:10] VITALS: BP 120/87
--- NOTE | 2024-07-22 18:40 | NUR ---
PT ALERT AND ORIENTED, INDEPENDENT IN ROOM. COMPLAINS OF L ARM PAIN SIMILAR TO PREVIOUS NSTEMI PAIN FROM OCTOBER THIS YEAR. PRN MORPHINE GIVEN X4 THIS SHIFT WITH GOOD EFFECT. XANEX GIVEN X1 FOR ANXIETY. CARDIOLOGY CONSULTED AND RECCOMENDED STRESS TEST, PART 1 COMPLETED TODAY WITH PART TWO SCHEDULED FOR TOMORROW AT 0930. PT TO BE NPO AT MIDNIGHT TONIGHT OTHER THAN WATER AND MEDS. PT COOPERATIVE WITH CARE, VSB[place], RA, SR ON TELE.
[2024-07-22 19:03] VITALS: BP 112/82
--- NOTE | 2024-07-23 00:53 | NUR ---
07/22/241942 PT LYING IN BED, REPORTS L ARM PAIN STILL, IT IS A 6/10, WAS GIVEN MORPHINE BY DAY RN AT 1849. WILL CONTINUE TO MONITOR FOR EFFECT. TELE NSR 74. NO OTHER APPARENT SIGNS OF DISTRESS. PT DENIES NEED FOR ANYTHING ELSE AT THIS TIME. CALL LIGHT IS IN REACH.
--- NOTE | 2024-07-23 00:55 | NUR ---
07/22/24 4498 PT REQUESTED AND RECIVED PAIN MEDICATION FOR L ARM PAIN OF 03/06. WILL EVAL FOR EFFECT. NO OTHER APPARENT SIGNS OF DISTRESS. CALL LIGHT IS IN REACH.
--- NOTE | 2024-07-23 01:05 | NUR ---
PT REQUESTED AND RECEIVED PAIN MEDS AND XANAX, WILL EVAL FOR EFFECT. NO OTHER APPARENT SIGNS OF DISTRESS. CALL LIGHT IS IN REACH.
--- NOTE | 2024-07-23 02:01 | NUR ---
PT LYING IN BED, EYES CLOSED, APPEARS TO BE RESTING. BREATHING IS EVEN, UNLABORED. NO APPARENT SIGNS OF DISTRESS. CALL LIGHT IS IN REACH.
--- NOTE | 2024-07-23 03:50 | NUR ---
PT LYING IN BED, EYES CLOSED, APPEARS TO BE RESTING. BREATHING IS EVEN, UNLABORED. NO APPARENT SIGNS OF DISTRESS. CALL LIGHT IS IN REACH.
--- NOTE | 2024-07-23 03:51 | NUR ---
PT IS AAO X 4, ON RA. REPORTS CONTINUED L ARM PAIN OF 6-7/10, IS ASKING FOR AND RECEIVING MORPHINE ABOUT Q 2-3 HOURS WHILE AWAKE. TELE NSR.
[2024-07-23 04:07] VITALS: BP 106/72
--- NOTE | 2024-07-23 04:17 | NUR ---
PT REQUESTED AND RECEIVED PAIN MEDS, WILL EVAL FOR EFFECT. REPORTS THAT THE HEATING PAD IS HELPING A LITTLE. NO OTHER APPARENT SIGNS OF DISTRESS. CALL LIGHT IS IN REACH.
--- NOTE | 2024-07-23 06:02 | NUR ---
PT LYING IN BED, EYES CLOSED, APPEARS TO BE RESTING. BREATHIG IS EVEN, UNLABORED. NO APPARENT SIGNS OF DISTRESS. CALL LIGHT IS IN REACH. NO OTHER CHANGES THIS SHIFT.
[2024-07-23 07:46] VITALS: BP 118/81
[2024-07-23] MEDS ORDERED: buPROPion HCL 150 MG TAB.SR.12H PO SCH (09:00)
[2024-07-23] MEDS ORDERED: Caffeine Citrated 60 MG/3 ML Vial ONE (09:16)
[2024-07-23] MEDS ORDERED: Regadenoson 0.4 MG/5 ML SYRINGE ONE (09:16)
--- NOTE | 2024-07-23 13:35 | NUR ---
LATE ENTRY: 1230- CONTACTED DR COBB REGARDING PATIENT PAIN WHICH IS UNRELIEVED WITH MORPHINE. PENDING HOSPTIALST ORDERS
[2024-07-23 15:25] VITALS: BP 102/62
[2024-07-23] MEDS ORDERED: Acetaminophen 325 MG TABLET PO PRN (15:35)
[2024-07-23] MEDS ORDERED: TraMADol HCl 50 MG Tab PO PRN (15:35)
--- NOTE | 2024-07-23 18:20 | NUR ---
PATIENT A/O X 4 PATIENT HAD NUCLEAR STRESS TEST TODAY AND WAS SENT FOR CTA TO BE DONE. PATIENT CONTINUES TO COMPLAIN OF LEFT SIDED ARM PAIN. PATIENT HAS HAD A CHANGE IN PAIN MEDICATION MORPHINE WAS NOT WORKING. PATIENT ON TELE WHICH SHOWS 103/SINUS TACH. IV WAS CHANGED FROM LEFT A/C DUE TO LEAK TO LEFT FOREARM. PATIENT TOLERATED PROCEDURE WELL. PATIENT INDEPENDENT IN ROOM AND WILL CALL FOR ASSISTANCE IF NEEDED. PATIENT DENIES ANY OTHER NEEDS AT THIS TIME.
[2024-07-23 19:44] VITALS: BP 107/72
[2024-07-24 03:37] VITALS: BP 106/75
--- NOTE | 2024-07-24 05:18 | NUR ---
PT DOING WELL THIS SHIFT, HERE FOR CHEST PAIN, AND RESIDUAL LEFT ARM PAIN FROM SHOULDER TO ELBOW. RECIEVES TRAMADOL AND TYLENOL FOR THIS. B/P RUNS LOW, TELE IS nsr IN 80'S, SLEPT BETWEEN CARES WITH NO ISSUE.
[2024-07-24 07:23] VITALS: BP 115/83
--- NOTE | 2024-07-24 13:14 | NUR ---
DISCHARGE PT DISCHARGED. EDUCATION PROVIDED, PRESCRIPTIONS FAXED TO PT PHARMACY, ALL BELONGINGS WITH PT.
== END 2024-07-24 12:30 | disposition home or self-care (01) ==
LOC: ER 14:52 → ERHOLD 14:53 → MEDS 14:53 → ENPENDDIS 07-24 11:29 → MEDS 07-24 12:30
PROVIDERS: Physician Assistant; ADMIT Student in an Organized Health Care Education/Training Program
DX: R07.89 Other chest pain (principal); I10 Essential (primary) hypertension; E78.5 Hyperlipidemia, unspecified; F41.9 Anxiety disorder, unspecified; I25.10 Atherosclerotic heart disease of native coronary artery without angina pectoris; G43.909 Migraine, unspecified, not intractable, without status migrainosus; Z95.5 Presence of coronary angioplasty implant and graft; Z87.891 Personal history of nicotine dependence; Z88.5 Allergy status to narcotic agent; Z79.82 Long term (current) use of aspirin; Z79.899 Other long term (current) drug therapy
CPT/HCPCS: 36415; 71046; 71275; 78452; 80053; 83735; 84484; 85025; 93005; 93010; 93017; 96372; 96374; 96375; 96376; 99285-25; A9270; A9500; G0378; J0706; J1650; J2270; J2405; J2785; Q9967

== ENCOUNTER → 2024-08-13 | Outpatient (CLI) | payer BC, OTHER ==
[2024-08-19 15:35] LABS: HPV HIGH RISK BY TMA Not Detected; HPV SOURCE Cervical
== END | disposition home or self-care (01) ==
LOC: LAB SHORT 09:54 → LAB 09:54
PROVIDERS: Obstetrics & Gynecology
DX: Z01.419 Encounter for gynecological examination (general) (routine) without abnormal findings (principal)
CPT/HCPCS: 87624; G0123